=== PATIENT | male | born 1990 | race African-American/Black ===

== ENCOUNTER 2020-11-01 08:20 | Emergency (ER) | payer OTHER, SELFPAY ==
--- NOTE | ~2020-11-01 | XR_ITS ---
EXAMINATION: XR SHOULDER, RIGHT CLINICAL INFORMATION: Trauma, pain COMPARISON: None TECHNIQUE: Right shoulder is imaged in 3 views. FINDINGS: There is no fracture or dislocation. The glenohumeral joint appears normal. The acromioclavicular alignment is normal. There is spurring inferior aspect distal clavicle. No visible rotator cuff calcifications. Right lung apex shows no pneumothorax or pleural reaction. XR/XR shoulder RT min 2V IMPRESSION: No fracture or dislocation.
--- NOTE | ~2020-11-01 | XR_ITS ---
EXAMINATION: XR ELBOW, RIGHT CLINICAL INFORMATION: Fall, trauma, pain COMPARISON: None TECHNIQUE: AP, lateral, and oblique views of the right elbow. FINDINGS: There is no fracture, dislocation, or elbow capsular effusion. No joint narrowing or erosive change. Normal bony mineralization. XR/XR elbow RT min 3V IMPRESSION: Normal right elbow.
[2020-11-01 09:25] VITALS: PULSE 90; RESP 18; TEMP 36.7; O2SAT 98; BMI 29.9
--- NOTE | 2020-11-01 10:02 | ED.EXTPRO ---
HPI - Extremity Problem General Chief complaint: Extremity Injury, Upper Stated complaint: fell rt elbow and rt shoulder inj Time Seen by Provider: 11/01/20 09:23 Source: patient Mode of arrival: ambulatory Limitations: no limitations History of Present Illness HPI Narrative: Otherwise healthy 30-year-old male who denies significant past medical or surgical history presenting complaint of right shoulder and elbow pain status post fall yesterday. States he was walking out of his apartment and did not realize the steps were wet and slippery he slipped tried to stop his fall and reached out to the hand rail with his right arm and since then he has had right shoulder pain and elbow pain where he hit. States he felt okay somewhat sore this morning he went to work he was lifting something and made the pain more pronounced in the right shoulder. States at that time also had some mild low back pain but does not at this time. Denies any other injury. MD Complaint: extremity pain Onset (ago): day(s) Pain Consistency: constant Location: right Severity scale (1-10): 6 Quality: aching Radiation: proximal Relieving factors: immobilization Exacerbating factors: range of motion Associated symptoms: denies other symptoms Context: other (Fall) Related Data Previous Rx's Medication Instructions Recorded ibuprofen 800 mg PO Q8H PRN #30 tab 11/01/20 Allergies Allergy/AdvReac Type Severity Reaction Status Date / Time quetiapine [From SEROQUEL] AdvReac Intermediate RESTLESSNES Unverified 05/10/20 15:47 S Review of Systems Review of Systems: Constitutional: No Weight loss, No Fever, No Chills, No Night Sweats, No Fatigue, No Malaise ENT/Mouth: No Hearing loss, No Ear Pain, No Nasal Congestion, No Sinus Pain, No Hoarseness, No sore throat, No Rhinorrhea, No Swallowing Difficulty Eyes: No Eye Pain, No Swelling, No Redness, No Foreign Body, No Discharge, No Vision Changes Cardiovascular: No Chest Pain, No SOB, No Dyspnea on Exertion, No Orthopnea, No Edema, No Palpitations Respiratory: No Cough, No Sputum, No Wheezing, No Dyspnea Gastrointestinal: No Nausea, No Vomiting, No Diarrhea, No Constipation, No abdominal Pain, No Hematochezia, No Melena Genitourinary: No Dysuria, No Urinary Frequency, No Hematuria, No Urinary Incontinence, No Urgency, No Flank Pain, No Urinary Flow Changes, No Hesitancy Musculoskeletal: No joint pain, No Myalgias, No Joint Swelling, as noted per HPI Skin: No Skin Lesions, No rash Neuro: No Weakness, No Numbness, No Paresthesias, No Loss of Consciousness, No Dizziness, No Headache Psych: No Social Issues Heme/Lymph: No Bruising, No Bleeding,No Lymphadenopathy Endocrine: No Polyuria, No Polydipsia, No Temperature Intolerance Yes all other systems are reviewed and are negative [facility] Past Medical History Medical History No known health problems Social History Social History Alcohol intake: never Smoked in Last 30 Days: No Use of substances other than those prescribed or required for medical reasons: No Advance Directives: No Advance Directives Information Provided: No Physical Exam Vital Signs: Vital Signs: Last Vital Signs Temp 98.0 F 11/01/20 09:25 Pulse 90 11/01/20 09:25 Resp 18 11/01/20 09:25 Pulse Ox 98 11/01/20 09:25 Body Mass Index 29.9 Reviewed Const: General: cooperative and healthy appearing; No acute distress or intoxicated appearing Nutritional Appearance: average body habitus Orientation/consciousness: patient oriented x3 HENMT: Head: Yes normal to inspection Ears: hearing grossly normal bilaterally Eyes: General: appearance normal, both eyes and all related structures Visual Sahni: normal visual sahni by confrontation Neck: Neck: Yes normal visual inspection, No positive Brudzinski's sign and No tender Thyroid: Thyroid normal Chest: Chest palpation & inspection: normal inspection of the chest Resp: Effort & Inspection: normal respiratory effort Auscultation: clear to auscultation bilaterally Cardio: Jugular venous distension: no JVD Rhythm: regular rhythm Heart sounds: S1 normal heart sound present and S2 normal heart sound present GI: Inspection: Yes normal to inspection Palpation (GI): Soft to palpation Percussion: Yes normal to percussion Auscultation: normal bowel sounds : General: Yes no CVA tenderness Back/Spine/Pelvis: Back: no CVA tenderness Skin: General skin exam: no rashes or lesions noted Neuro: General: patient oriented x3 Extrem: General: Yes normal to inspection Right upper extremity: normal to inspection, shoulder/upper arm (No vascular intact distally, reflexes within normal limits.) Details: abnormal ROM (Pain diffusely in all directions but vida to move byself ) Details: pain with active ROM and elbow/forearm Details: tenderness (mild ttp, no ss of injury , no ecchymosis or laceration/abrasion.) Location: of the olecranon MDM - Extremity (Nontraumatic) MDM Narrative Medical decision making narrative: Right shoulder/elbow pain status post fall yesterday that occurred at home exam contusion versus strain versus ligament station injury. X-ray without acute findings. Will place in sling and referred to Ortho. Imaging Data Right shoulder/right elbow: Radiologist's impression: [address] [id number] ReportSigned Patient: Christian Aleman OMR#: [id number]: 1990Acct:[id number]/Sex: 30 / MADM Date: 11/01/20Loc: [place].EDAttending Dr: Ordering Physician: Mitch Harding NP Date of Service: 11/01/20 Procedure(s): XR elbow RT min 3V Accession Number(s): [id number] cc: Mitch Harding NP~ EXAMINATION: XR ELBOW, RIGHT CLINICAL INFORMATION: Fall, trauma, pain COMPARISON: None TECHNIQUE: AP, lateral, and oblique views of the right elbow. FINDINGS: There is no fracture, dislocation, or elbow capsular effusion. No joint narrowing or erosive change. Normal bony mineralization. XR/XR elbow RT min 3V IMPRESSION: Normal right elbow. Dictated By:LAZ GIPSON MDSigned By:<Electronically signed by LAZ GIPSON MD in OV>11/01/20 1004 DD/ 0923TD/TT: Sandblast Operator: BRIAN [address] [id number] ReportSigned Patient: Christian Aleman OMR#: [id number]: 1990Acct:[id number]/Sex: 30 / MADM Date: 11/01/20Loc: [place].EDAttending Dr: Ordering Physician: Mitch Harding IN FLIGHT REFUELING OPERATOR Date of Service: 11/01/20 Procedure(s): XR shoulder RT min 2V Accession Number(s): [id number] cc: Mitch Harding IN FLIGHT REFUELING OPERATOR~ EXAMINATION: XR SHOULDER, RIGHT CLINICAL INFORMATION: Trauma, pain COMPARISON: None TECHNIQUE: Right shoulder is imaged in 3 views. FINDINGS: There is no fracture or dislocation. The glenohumeral joint appears normal. The acromioclavicular alignment is normal. There is spurring inferior aspect distal clavicle. No visible rotator cuff calcifications. Right lung apex shows no pneumothorax or pleural reaction. XR/XR shoulder RT min 2V IMPRESSION: No fracture or dislocation. Dictated By:LAZ GIPSON MDSigned By:<Electronically signed by LAZ GIPSON MD in OV>11/01/20 1002 DD/ 0923TD/TT: Sandblast Operator: BRIAN Discharge Plan Discharge Clinical Impression: Fall Qualifiers: Encounter type: initial encounter Qualified Code(s): W19.XXXA - Unspecified fall, initial encounter Injury of shoulder, right Qualifiers: Encounter type: initial encounter Qualified Code(s): S49.91XA - Unspecified injury of right shoulder and upper arm, initial encounter Contusion of elbow, right Qualifiers: Encounter type: initial encounter Qualified Code(s): S50.01XA - Contusion of right elbow, initial encounter Patient Disposition: Home, Self-Care Instructions: Contusion in Adults (ED), Shoulder Sprain (ED), Shoulder Immobilizer (ED) Additional Instructions: Shoulder immobilizer for comfort Removed and able to do gentle exercises reviewed Warm versus cold compresses whichever feels comfortable Follow-up with orthopedics as discuss Return if any concerns or worsening symptoms Thank you Prescriptions: New ibuprofen 800 mg tablet 800 mg PO Q8H PRN (Reason: pain) Qty: 30 RF: 0 Referrals: David Sahu MD [Primary Care Provider] - 5 days Mary Cisse MD [Physician] - 1 week Stand Alone Forms: Work/School Release
== END 2020-11-01 10:43 | disposition home or self-care (01) ==
PROVIDERS: Emergency Provider Emergency Medicine Emergency Medical Services; PCP Internal Medicine
DX: S49.91XA Unspecified injury of right shoulder and upper arm, initial encounter (principal); S50.02XA Contusion of left elbow, initial encounter; W00.1XXA Fall from stairs and steps due to ice and snow, initial encounter; Y93.89 Activity, other specified; Y92.038 Other place in apartment as the place of occurrence of the external cause; Y99.9 Unspecified external cause status
CPT/HCPCS: 73030; 73080; 96372; 99284

== ENCOUNTER 2020-12-10 15:41 | Outpatient (REF) | payer OTHER, SELFPAY | END 2020-12-10 15:42 | disposition home or self-care (01) | LOC: HO.LAB 15:41 | PROVIDERS: Visit Provider Internal Medicine | DX: Z20.822 Contact with and (suspected) exposure to COVID-19 (principal) | CPT/HCPCS: C9803; U0003; U0005 ==

== ENCOUNTER 2021-04-03 10:09 | Outpatient (REF) | payer OTHER, SELFPAY | END 2021-04-03 10:10 | disposition home or self-care (01) | LOC: HO.LAB 10:09 | PROVIDERS: PCP Internal Medicine; Visit Provider Internal Medicine | DX: Z20.822 Contact with and (suspected) exposure to COVID-19 (principal) | CPT/HCPCS: C9803; U0003; U0005 ==

== ENCOUNTER 2021-10-29 15:07 | Outpatient (REF) | payer OTHER, SELFPAY ==
[2021-10-29 15:34] LABS: MANUAL DIFF FLAG NO
[2021-10-29 15:54] LABS: Basophils Percent Auto 0.4 % (0-2); Eosinophils Absolute Auto 0.1 X10*3/uL (0.0-0.4); Eosinophils Percent Auto 1.5 % (0-4); Hematocrit 42.6 % (42.0-52.0); Imm Gran Abs Auto 0.02 X10*3/uL (0.00-0.03); Imm Gran Pct Auto 0.2 % (0.0-0.4); Lymphocytes Absolute Auto 1.9 X10*3/uL (1.2-4.9); Lymphocytes Percent Auto 23.1 % (20-40); Mean Corpuscular HGB Conc 32.9 g/dl (31.0-36.0); Mean Corpuscular Hemoglobin 28.2 pg (27.0-33.0); Mean Corpuscular Volume 85.9 fL (80.0-98.0); Mean Platelet Volume 11.3 fL (9.4-12.4); Monocytes Absolute Auto 0.6 X10*3/uL (0.1-1.2); Monocytes Percent Auto 7.6 % (2-11); Neutrophils Absolute Auto 5.6 x10*3/uL (2.0-8.3); Neutrophils Percent Auto 67.2 % (45-73); Platelet Count 237 X10*3/uL (160-400); Red Blood Count 4.96 X10*6/uL (4.60-5.80); Red Cell Distribution Width 12.4 % (11.0-16.0); White Blood Count 8.3 X10*3/uL (4.8-10.8)
[2021-10-29 16:19] LABS: Appearance Urine CLEAR; Color Urine YELLOW; Glucose Urine UA NEG (NEG); Leukocyte Esterase Urine NEG (NEG); Nitrite Urine NEG (NEG); Specific Gravity - Urine >= 1.030 (1.005-1.025); Urine Blood NEG (NEG); Urine Ketones 5 MG/DL (NEG); Urine Protein NEG (NEG-TRACE)
[2021-10-29 16:24] LABS: Alanine Aminotransferase 23 U/L (0-40); Albumin Level 4.5 g/dL (3.5-5.0); Alkaline Phosphatase 43 U/L (39-117); Anion Gap 12 (12-20); Aspartate Amino Transferase 28 U/L (5-37); Bilirubin Total 0.6 mg/dL (0.0-1.0); Blood Urea Nitrogen 16 mg/dL (9-16); Carbon Dioxide 28 mmol/L (22-29); Chloride 106 mmol/L (96-108); Cholesterol 131 mg/dL; Estimated Glomerular Filt Rate > 60; Glucose Random 89 mg/dL (60-115); Potassium 4.5 mmol/L (3.3-5.1); Sodium 141 mmol/L (135-145); Total Protein 6.9 g/dL (6.5-8.0)
[2021-10-29 16:46] LABS: TSH reflex Free T4 1.11 uIU/mL (0.32-4.0); Vitamin D 25-OH Total 18.3 ng/mL (>30)
[2021-10-30 08:24] LABS: Syphilis Screen Nonreactive (Nonreactive)
[2021-10-30 08:25] LABS: HBsAGNum1 0.18 S/CO (0.00-0.99); HIV AB/AG Nonreactive (Nonreactive); HIV Num 1 0.06 S/CO (0.00-0.99); Hepatitis B Surface Antigen Negative (Negative)
[2021-10-30 09:25] LABS: CT PCR NOT DETECTED (Not Detect.); NG PCR NOT DETECTED (Not Detect.)
[2021-10-30 10:05] LABS: HBS Num1 45.38 mIU/mL (0-7.99); HBc Num1 0.04 S/CO (0.00-0.79); Hepatitis B Core Antibody Nonreactive (Nonreactive); ~HepC Num1 0.06 S/CO (0.00-0.79); ~Hepatitis B Surface Antibody REACTIVE (Nonreactive); ~Hepatitis C Antibody Nonreactive (Nonreactive)
[2021-11-05 22:42] LABS: HSV 1 IgM IFA Negative (Negative); HSV 2 IgM IFA Negative (Negative)
== END 2021-10-29 15:08 | disposition home or self-care (01) ==
LOC: HO.LAB 15:07
PROVIDERS: PCP Internal Medicine; Visit Provider Internal Medicine
DX: Z00.00 Encounter for general adult medical examination without abnormal findings (principal); Z11.4 Encounter for screening for human immunodeficiency virus [HIV]; E55.9 Vitamin D deficiency, unspecified; Z20.2 Contact with and (suspected) exposure to infections with a predominantly sexual mode of transmission
CPT/HCPCS: 80053; 81003; 82306; 82465; 84443; 85025; 86695; 86696; 86704; 86706; 86780; 86803; 87340; 87389; 87491; 87591

== ENCOUNTER 2023-07-04 10:02 | Emergency (ER) | payer OTHER, SELFPAY ==
--- NOTE | 2023-07-04 10:11 | ED_ITS ---
HPI - Male Genitourinary General Chief complaint: Urogenital-Male Stated complaint: STD testing Time Seen by Provider: 07/04/23 10:04 Source: patient Mode of arrival: ambulatory Limitations: no limitations History of Present Illness HPI Narrative: patient is a 32 old male who presents emergency department requesting testing for STI. He states that last night he had unprotected intercourse with 2 women while under the influence of alcohol he is concerned about transmission of STI. Currently he is asymptomatic. Related Data Previous Rx's Medication Instructions Recorded doxycycline monohydrate 100 mg 100 mg PO BID #13 caps 07/04/23 capsule Allergies Allergy/AdvReac Type Severity Reaction Status Date / Time quetiapine [From SEROQUEL] AdvReac Intermediate RESTLESSNES Unverified 11/26/22 15:17 S Review of Systems Review of Systems: Yes all other systems are reviewed and are negative [facility] Past Medical History Attestation statement: The following information was validated with the patient. Source: old records reviewed Medical History Obesity (BMI 30-39.9) Overweight (BMI 25.0-29.9) Asthma Peptic ulcer disease GERD (gastroesophageal reflux disease) Surgical History History of toe surgery (~2011) History of cholecystectomy Family History Family History Mother Diabetes Bipolar 1 disorder Other Mental health problem Social History Social History Housing: Apartment Alcohol intake: current Alcohol intake frequency: holidays/special occasions only Patient Tobacco Use Status: Never used Tobacco Second Hand Smoke Exposure: Yes Substance Use Type: Marijuana service: No Current occupational status: employed Cognitive needs: No Hearing needs: No Vision needs: No Physical Exam Vital Signs: Appearance: Alert.?Oriented to person, place and time. No acute distress.?Normal affect. Eyes: Pupils equal, round and reactive to light.? ENT: Pharynx normal.?? Neck: Normal inspection.? Neck supple.?? CVS: Heart sounds normal. Normal heart rate and rhythm.? Pulses normal.?? Respiratory: No respiratory distress.? Lung sounds clear to auscultation bilaterally?? Abdomen: Soft and non-tender. Normoactive bowel sounds. Skin: Skin warm and dry.? Normal skin color.? Extremities: No lower extremity edema.? Neuro: Moves all extremities spontaneously. Sensation intact bilaterally. Ambulates with normal steady gait. Medical Decision Making Medical Decision Making MDM Narrative: Patient is a 32-year-old male who presents emergency department with concern for STI after unprotected intercourse last night. I discussed with patient that testing obtained today would be too soon to determine if there was transition of any sexually transmitted in sections from last night's encounter. He is requesting prophylactic treatment to cover chlamydia and gonorrhea, I discussed with him this would include injection with ceftriaxone in addition to a 1 week course of doxycycline which he is agreeable to. We also discussed HIV prophylaxis, at this time he is not interested in HIV prophylaxis. He states that he plans to follow up with his primary care provider for repeat testing; I advised the HIV prophylaxis can be initiated for 72 hours after intercourse, and recommended HIV testing in 6 weeks as he is currently declining HIV prophylaxis. Patient was advised to refrain from sexual intercourse for the next week. Discussed worrisome signs and symptoms that would warrant re-evaluation in the emergency department. All questions answered. Stable for discharge. Differential Diagnosis Differential Diagnoses: The differential diagnosis associated with the presentation includes ( Noted above) External Record Review External record reviewed: Outpatient record Tests considered The following testing was considered but not selected: STI testing, too soon, deferred see narrative above Prescription Management I considered prescription management with: Antibiotic Discharge Plan Discharge Clinical Impression: Contact with and (suspected) exposure to infections with a predominantly sexual mode of transmission Patient Disposition: Home, Self-Care Instructions: Postexposure Prophylaxis (ED) Additional Instructions: You received treatment with ceftriaxone in the emergency department in the 1st dose of doxycycline, I have sent the remainder prescription for doxycycline to your pharmacy. Please complete this entire course. We discussed HIV prophy laxis with nPEP, indications abuse and possibility of transmission, you have declined nPEP, please follow-up with your primary care provider and consider having testing in 6 weeks. Refrain from sexual intercourse over the next week while on antibiotics. On doxycycline, do not take pills immediately before going to bed and swallow pills with plenty of water. Avoid direct sunlight, iron, antacids, and Pepto Bismol. Call your provider if you develop new ringing in your ears, new problems hearing, dizziness, difficulty swallowing, rash, abdominal discomfort, nausea, or diarrhea.? Prescriptions: New doxycycline monohydrate 100 mg capsule 100 mg PO BID Qty: 13 0RF Referrals: David Sahu MD [Primary Care Provider] -
[2023-07-04 10:14] VITALS: BP 147/96; PULSE 89; RESP 16; TEMP 36.9; O2SAT 96; BMI 29.9
[2023-07-04] MEDS: Doxycycline Monohydrate 100 MG CAPSULE PO (10:41)
[2023-07-04] MEDS: cefTRIAXone sodium 500 MG, Lidocaine HCl 1 % MPF 1 ML IM (10:41)
[2023-07-04 12:32] LABS: CT PCR NOT DETECTED (Not Detect.); NG PCR NOT DETECTED (Not Detect.)
== END 2023-07-04 10:57 | disposition home or self-care (01) ==
PROVIDERS: Nurse Practitioner Family; Emergency Provider Emergency Medicine Emergency Medical Services; PCP Internal Medicine
DX: Z20.2 Contact with and (suspected) exposure to infections with a predominantly sexual mode of transmission (principal)
CPT/HCPCS: 0353U; 96372; 99283; 99284; J0696

== ENCOUNTER 2024-07-25 09:25 | Outpatient (AMB) | payer OTHER, SELFPAY ==
[2024-07-25 09:37] VITALS: BP 110/82; PULSE 58; O2SAT 98; BMI 27.9
--- NOTE | 2024-07-25 09:37 | MHC.PC.OV ---
Vital Signs 07/25/24 09:37 Height 5 ft 7 in Weight 178 lb BMI 27.9 BP 110/82 Blood Pressure Location Lt brachial Position Sitting Pulse 58 Pulse Source Pulse Oximeter Pulse Oximetry (%) 98 Oxygen Delivery Method Room Air Intake Visit Reasons: ANNUAL Web Page Designer Required: No Accompanied by: Self / Same As Patient Allergies quetiapine [From SEROQUEL] Adverse Reaction (Intermediate, Verified 07/25/24 09:54) RESTLESSNESS Medication List - Last Reconciled 07/25/24 by David Sahu MD doxycycline monohydrate 100 mg PO BID Tobacco use date assessed: 07/25/24 Dental Screening Dental Screen Date: 07/25/24 Did you have a dental visit in the last 12 months?: Yes Did you have a dental problem in the last 6 months where you did not have access to dental care?: No Was dental information given to patient?: Patient has dentist HPI ANNUAL HPI Details Patient comes in today for his annual physical examination States that he feels okay He denies any headaches or dizziness Denies any chest pains, no SOB No nausea/vomiting, no abdominal pain No change in bowel habits noted He denies any acute urinary symptoms Would also like to have some STD testing done and get himself checked out - states that he's had no acute STD symptoms or symptoms but recalls having several casual sexual encounters this past summer and just wants to get himself checked out for his own peace of mind [facility] Medical History (Updated 07/25/24 @ 12:03 by David Sahu MD) Overweight (BMI 25.0-29.9) Asthma Peptic ulcer disease GERD (gastroesophageal reflux disease) Surgical History History of toe surgery (~2011) History of cholecystectomy Family History Mother Diabetes Bipolar 1 disorder Other Mental health problem Social History Housing: Apartment Alcohol intake: current Alcohol intake frequency: holidays/special occasions only Patient Tobacco Use Status: Never used Tobacco e-Cigarette/Vaping Use: Never Used Second Hand Smoke Exposure: Yes Substance Use Type: Marijuana service: No Current occupational status: employed Cognitive needs: No Hearing needs: No Vision needs: No Questionnaire PHQ-9 Over the last 2 weeks, how often have you been bothered by any of the following problems? 1. Little interest or pleasure in doing things: not at all 2. Feeling down, depressed, or hopeless: not at all 3. Trouble falling or staying asleep, or sleeping too much: several days 4. Feeling tired or having little energy: not at all 5. Poor appetite or overeating: not at all 6. Feeling bad about yourself - or that you are a failure or have let yourself or your family down: not at all 7. Trouble concentrating on things, such as reading the newspaper or watching television: not at all 8. Moving or speaking so slowly that other people could have noticed. Or the opposite - being so fidgety or restless that you have been moving around a lot more than usual: not at all 9. Thoughts that you would be better off or of hurting yourself in some way: not at all Total score: 1 Depression Screening Interpretation: Negative Depression Screening Done: Yes 82559 - PHQ-9 Billing: Yes Source: Developed by Drs. Albert Conn, Ellie Anne, Endy Iniguez and colleagues, with an educational nicholas from [employer]. Thrive Questionnaire Date Thrive assessed: 07/25/24 I am a: Patient What is your living situation today?: I have a steady place to live Within the past 12 months, did the food you bought not last and you didn't have the money to get more?: Never true Within the past 12 months, did you worry whether your food would run out before you got money to buy more?: Never true Do you have trouble paying for medicines?: No Do you have trouble getting transportation to medical appointments?: No Do you have trouble paying your heating and electricity bill?: No Do you have trouble taking care of your child, family member or friend?: No Do you have trouble with day-to-day activities such as bathing, preparing meals, shopping, managing finances, etc.?: No Are you currently unemployed and looking for a job?: No Are you interested in more education?: No Please select the resources that you would like help with: None Currently or been in a relationship where the following occur: I choose not to answer THRIVE Score: 0 AUDIT C Alcohol Use Questionnaire (AUDIT-C) 1. How often do you have a drink containing alcohol?: Monthly or less 2. How many drinks containing alcohol do you have on a typical day when you are drinking?: 3 or 4 3. How often do you have six or more drinks on one occasion?: Less than monthly Total Score: 3 Score Reviewed/Action Taken: Yes MOLLY-7 AMB Questionnaire MOLLY-7 Date MOLLY - 7 assessed: 11/26/22 Feeling nervous, anxious, or on edge: 1 = Several days Not being able to stop or control worryin = Not at all Worrying too much about different things: 1 = Several days Trouble relaxin = Several days Being so restless that it is hard to sit still: 0 = Not at all Becoming easily annoyed or irritable: 1 = Several days Feeling afraid as if something awful might happen: 0 = Not at all Total MOLLY-7 score (0-4 normal; 5-9 mild; 10-14 moderate; 15-21 severe): 4 Source: Developed by Drs. Albert Conn, Ellie Anne, Endy Iniguez and colleagues, with an educational nicholas from [employer]. Review of Systems Const Denies chills, Denies fatigue, Denies fever(s), Denies headache(s), Denies malaise and Denies weakness Eyes Denies blurry vision, Denies change in vision, Denies irritation and Denies itchy eyes ENT Denies dysphagia, Denies dizziness, Denies otalgia, Denies headache(s), Reports hearing loss (he has noticed some difficulty with his hearing recently), Denies nasal congestion, Denies neck pain, Denies odynophagia and Denies sore throat Card Denies chest pain, Denies rapid heart rate, Denies irregular heart rhythm, Denies palpitations and Denies dyspnea Resp Denies chest congestion, Denies cough, Denies dyspnea and Denies wheezing GI Denies abdominal pain, Denies bloating, Denies constipation, Denies dysphagia, Denies heartburn, Denies diarrhea, Denies nausea, Denies odynophagia and Denies vomiting Denies hematuria, Denies difficulty urinating, Denies dysuria, Denies urinary frequency and Denies urinary urgency Musc Denies back pain, Denies arthralgias, Denies joint swelling, Denies muscle weakness and Denies neck pain Skin/Breast Denies change in pigmentation, Denies lesions, Denies rash and Denies unusual bruising Neuro Denies dizziness, Denies headache(s), Denies paresthesias and Denies weakness Endo Denies fatigue and Denies palpitations Aller/Immun Denies itchy eyes and Denies wheezing Physical exam (Primary Care) Vital Signs: Last Vital Signs Pulse 58 07/25/24 09:37 BP 110/82 07/25/24 09:37 Pulse Ox 98 07/25/24 09:37 Oxygen Delivery Method Room Air 07/25/24 09:37 BMI result Body Mass Index 27.9 Tobacco/Smoking Status: Tobacco use Status Tobacco use date assessed 07/25/24 07/25/24 09:42 Patient Tobacco Use Status Never used Tobacco 07/25/24 09:42 e-Cigarette/Vaping Use Never Used 07/25/24 09:42 PHQ-9: PHQ-9 Score PHQ-9: Total score 1 07/25/24 10:00 Depression Screening Interpretation: Negative Thrive Assessment: Date of Thrive Assessment Date Thrive assessed 07/25/24 07/25/24 09:42 Currently or been in a relationship where the following occur: I choose not to answer Const General: no acute distress, alert and awake Orientation/consciousness: patient oriented x3 HENMT Head: Yes normocephalic and Yes atraumatic Ears: external ears normal, TM's normal bilaterally and EAC's normal General nose exam: No nasal discharge present Face and sinus: Yes normal facial exam and Yes sinuses nontender Teeth and gingiva: dentition normal Throat: Yes posterior oropharynx normal and Yes tonsils normal (no TP congestion) Eyes Eyelids: Yes eyelids normal Conjunctivae: conjunctivae normal Pupils: Equal, round and reactive pupils present EOM: EOMs intact bilaterally Neck Neck: Yes no lymphadenopathy and Yes supple Thyroid: Thyroid normal Resp Auscultation: clear to auscultation bilaterally, no rales and no wheezes Cardio Rate: regular rate Rhythm: regular rhythm Heart sounds: no murmurs GI Palpation (GI): Soft to palpation, nontender and No hepatosplenomegaly present Auscultation: normal bowel sounds General: Yes no CVA tenderness Back/Spine/Pelvis Back: no CVA tenderness Thoracic/Lumbar Spine: thoracic and lumbar spine normal to inspection Skin Lesions: no lesions Rashes: no rashes Neuro General: patient oriented x3, moves all extremities, no focal motor deficits and CN's II-XI intact bilaterally Cranial nerves: Yes Equal, round and reactive pupils present Cognition (Neuro): normal cognition Gait exam (Neuro): Normal gait present Extrem General: Yes no clubbing, cyanosis or edema Coding Level of Care Code Est Pt Prev Care 18-39y([id number]) Diagnoses Annual physical exam Z00.00 Gastroesophageal reflux disease without esophagitis K21.9 Esophagitis presence: without esophagitis Insomnia, unspecified type G47.00 Insomnia type: unspecified Possible exposure to STD Z20.2 Overweight (BMI 25.0-29.9) E66.3 Hearing loss, unspecified hearing loss type, unspecified laterality H91.90 Hearing loss type: unspecified Laterality: unspecified laterality Additional Codes PHQ-9 - 19282 - PHQ-9 Billing: Yes ([id number]) Assessment & Plan Assessment & Plan (1) Annual physical exam: Code(s): Z00.00 - Encounter for general adult medical examination without abnormal findings Category: Medical Plan: Check labs (2) GERD (gastroesophageal reflux disease): Code(s): K21.9 - Gastro-esophageal reflux disease without esophagitis Category: Medical Qualifiers: Esophagitis presence: without esophagitis Qualified Code(s): K21.9 - Gastro-esophageal reflux disease without esophagitis Plan: Dietary restrictions reinforced He used to take Omeprazole in the past but has not needed to take any Rx in a while now as his symptoms have been well-controlled (3) Insomnia: Code(s): G47.00 - Insomnia, unspecified Category: Medical Qualifiers: Insomnia type: unspecified Qualified Code(s): G47.00 - Insomnia, unspecified Plan: Sleep hygiene reinforced States that he has been sleeping better lately and does not need anything for his sleep at this time (4) Possible exposure to STD: Code(s): Z20.2 - Contact with and (suspected) exposure to infections with a predominantly sexual mode of transmission Category: Medical Plan: Per request, will send him as well for STD testing (5) Overweight (BMI 25.0-29.9): Code(s): E66.3 - Overweight Category: Medical Plan: Reinforced diet/exercise as tolerated/lose weight (6) Hearing loss: Code(s): H91.90 - Unspecified hearing loss, unspecified ear Category: Medical Qualifiers: Hearing loss type: unspecified Laterality: unspecified laterality Qualified Code(s): H91.90 - Unspecified hearing loss, unspecified ear Plan: Will refer him for hearing evaluation Plan To return in 1 year for his next annual physical examination Orders: Orders TSH reflex Free T4 Today E78.00 - Pure hypercholesterolemia, unspecified, Z00.00 - Encounter for general adult medical examination without abnormal findings UA CC w/rflx Micro + Cult Today R30.0 - Dysuria, Z00.00 - Encounter for general adult medical examination without abnormal findings HIV Ab/Ag Today Z20.2 - Contact with and (suspected) exposure to infections with a predominantly sexual mode of transmission Syphilis Screen Today Z20.2 - Contact with and (suspected) exposure to infections with a predominantly sexual mode of transmission CT NG by PCR Today Z20.2 - Contact with and (suspected) exposure to infections with a predominantly sexual mode of transmission Complete Blood Count Auto Diff Today D64.9 - Anemia, unspecified, Z00.00 - Encounter for general adult medical examination without abnormal findings Comprehensive [place]. Panel Fast Today E78.00 - Pure hypercholesterolemia, unspecified, Z00.00 - Encounter for general adult medical examination without abnormal findings Lipid Panel Today E78.00 - Pure hypercholesterolemia, unspecified, Z00.00 - Encounter for general adult medical examination without abnormal findings Vitamin D 25-OH Total Today E55.9 - Vitamin D deficiency, unspecified, Z00.00 - Encounter for general adult medical examination without abnormal findings Hepatitis B,C Profile Today Z20.2 - Contact with and (suspected) exposure to infections with a predominantly sexual mode of transmission Referrals Speech and Hearing Referral H91.90 - Unspecified hearing loss, unspecified ear
== END 2024-07-25 10:15 | disposition home or self-care (01) ==
PROVIDERS: PCP Internal Medicine; Visit Provider Internal Medicine
DX: Z00.00 Encounter for general adult medical examination without abnormal findings (principal); K21.9 Gastro-esophageal reflux disease without esophagitis; G47.00 Insomnia, unspecified; Z20.2 Contact with and (suspected) exposure to infections with a predominantly sexual mode of transmission; E66.3 Overweight; H91.90 Unspecified hearing loss, unspecified ear

== ENCOUNTER 2024-07-25 09:25 | Outpatient (REF) | payer OTHER, SELFPAY ==
[2024-07-25 10:36] LABS: MANUAL DIFF FLAG NO
[2024-07-25 10:50] LABS: Basophils Percent Auto 0.4 % (0-2); Eosinophils Absolute Auto 0.2 X10*3/uL (0.0-0.4); Eosinophils Percent Auto 2.5 % (0-4); Hematocrit 42.8 % (42.0-52.0); Hemoglobin 14.3 g/dl (14.0-18.0); Imm Gran Abs Auto 0.02 X10*3/uL (0.00-0.03); Imm Gran Pct Auto 0.3 % (0.0-0.4); Lymphocytes Absolute Auto 2.4 X10*3/uL (1.2-4.9); Lymphocytes Percent Auto 33.3 % (20-40); Mean Corpuscular HGB Conc 33.4 g/dl (31.0-36.0); Mean Corpuscular Hemoglobin 28.5 pg (27.0-33.0); Mean Corpuscular Volume 85.4 fL (80.0-98.0); Mean Platelet Volume 10.9 fL (9.4-12.4); Monocytes Absolute Auto 0.6 X10*3/uL (0.1-1.2); Monocytes Percent Auto 7.6 % (2-11); Neutrophils Absolute Auto 4.1 x10*3/uL (2.0-8.3); Neutrophils Percent Auto 55.9 % (45-73); Platelet Count 210 X10*3/uL (160-400); Red Blood Count 5.01 X10*6/uL (4.60-5.80); Red Cell Distribution Width 12.3 % (11.0-16.0); White Blood Count 7.3 X10*3/uL (4.8-10.8)
[2024-07-25 11:19] LABS: Appearance Urine Clear; Color Urine Yellow; Glucose Urine UA Negative (Negative); Leukocyte Esterase Urine Negative (Negative); Nitrite Urine Negative (Negative); Specific Gravity - Urine 1.015 (1.005-1.025); Urine Blood Negative (Negative); Urine Ketones Negative (Negative); Urine Protein Negative (Neg-Trace)
[2024-07-25 11:35] LABS: Alanine Aminotransferase 38 U/L (0-40); Albumin Level 4.4 g/dL (3.5-5.0); Alkaline Phosphatase 46 U/L (39-117); Anion Gap 8 (12-20); Aspartate Amino Transferase 41 U/L (5-37); Bilirubin Total 0.4 mg/dL (0.0-1.0); Blood Urea Nitrogen 11 mg/dL (9-16); Calcium 9.1 mg/dL (8.4-10.2); Carbon Dioxide 30 mmol/L (22-29); Chloride 106 mmol/L (96-108); Cholesterol 136 mg/dL (<200); Estimated Glomerular Filt Rate > 60; Glucose Fasting 101 mg/dL (60-99); HDL Cholesterol 46 mg/dL (>40); LDL Cholesterol Calculated 76 mg/dL (<100); Potassium 4.1 mmol/L (3.3-5.1); Sodium 140 mmol/L (135-145); Total Protein 6.7 g/dL (6.5-8.0); Triglycerides 74 mg/dL (<150)
[2024-07-25 11:44] LABS: Syphilis Screen Nonreactive (Nonreactive)
[2024-07-25 11:45] LABS: HBS Num1 32.33 mIU/mL (0-7.99); HBc Num1 0.04 S/CO (0.00-0.79); HBsAGNum1 0.56 S/CO (0.00-0.99); HIV AB/AG Nonreactive (Nonreactive); HIV Num 1 0.06 S/CO (0.00-0.99); Hepatitis B Core Antibody Nonreactive (Nonreactive); Hepatitis B Surface Antigen Negative (Negative); ~HepC Num1 0.06 S/CO (0.00-0.79); ~Hepatitis B Surface Antibody REACTIVE (Nonreactive); ~Hepatitis C Antibody Nonreactive (Nonreactive)
[2024-07-25 11:52] LABS: TSH reflex Free T4 2.06 uIU/mL (0.32-4.0); Vitamin D 25-OH Total 30.2 ng/mL (>30)
== END 2024-07-25 09:26 | disposition home or self-care (01) ==
LOC: HO.LAB 09:25
PROVIDERS: PCP Internal Medicine; Visit Provider Internal Medicine
DX: Z00.00 Encounter for general adult medical examination without abnormal findings (principal); K21.9 Gastro-esophageal reflux disease without esophagitis; G47.00 Insomnia, unspecified; E66.3 Overweight; H91.90 Unspecified hearing loss, unspecified ear; Z20.2 Contact with and (suspected) exposure to infections with a predominantly sexual mode of transmission; E78.00 Pure hypercholesterolemia, unspecified; R30.0 Dysuria; D64.9 Anemia, unspecified; E55.9 Vitamin D deficiency, unspecified
CPT/HCPCS: 36415; 80053; 80061; 81003; 82306; 84443; 85025; 86704; 86706; 86780; 86803; 87340; 87389; 96127

== ENCOUNTER 2024-10-18 06:33 | Emergency (ER) | payer OTHER, SELFPAY ==
--- NOTE | ~2024-10-18 | XR_ITS ---
CLINICAL HISTORY: Cough 1 view chest x-ray Comparison: CR/MD/SR - CHEST 2 VIEWS - 09/07/19 07:37 EST Findings: Lungs are well inflated. Mediastinal contours, cardiac silhouette, and pulmonary vasculature are within normal limits. Lungs are clear. No pleural effusion. IMPRESSION: 1. No acute findings. This document has been electronically signed by: Juancarlos Glover MD on 10/18/2024 07:38:27
[2024-10-18 06:35] VITALS: BP 132/80; PULSE 79; RESP 18; TEMP 36.1; O2SAT 99; BMI 27.6
--- NOTE | 2024-10-18 06:39 | ECG_ITS ---
Test Reason : chest pain with cough Blood Pressure : */* mmHG Vent. Rate : 75 BPM Atrial Rate : 75 BPM P-R Int : 138 ms QRS Dur : 78 ms QT Int : 352 ms P-R-T Axes : 46 39 37 degrees QTcB Int : 393 ms Normal sinus rhythm Normal ECG When compared with ECG of 07-Sep-2019 08:06, No significant change was found Referred By: Generic ED Physician Electronically Signed By: BREANNA REAVES
--- OUTSIDE RECORDS SUMMARY | 2024-10-18 07:00 | XMS_ITS | Clinical Summary ---
Author Organization [employer] Address [address] [place] [address] Care Team Providers Care Automated Access Systems Technician Name Role Phone Unavailable Primary Care Provider Unavailabl e Allergies No known active allergies Medications acetaminophen (Tylenol) 500 MG tablet Take 1 tablet (500 mg) by mouth every 6 (six) hours if needed for mild pain for up to 20 doses. 20 tablet 03/03/2024 Active ibuprofen 600 MG tablet Take 1 tablet (600 mg) by mouth every 6 (six) hours if needed for mild pain for up to 20 doses. 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 Social History Tobacco Use Types Packs/Day Years Used Date Smoking Tobacco: Former Cigarettes Smokeless Tobacco: Former Tobacco Cessation:Counseling Given: Not Answered Alcohol Use Standard Drinks/Week Comments Defer 0 (1 standard drink = 0.6 oz pur e alcohol) Sex and Gender Information Value Date Recorded Sex Assigned at Male 06/23/2022 10:25 AM EDT Legal Sex Male 10:25 AM EDT Gender Identity Male 03/03/2024 8:58 AM EDT Sexual Orientation Straight 03/03/2024 8: 58 AM EDT Last Filed Vital Signs Vital Sign Reading Time Taken Comments Blood Pressure 120/80 03/03/2024 1:36 PM EDT Pulse - - Temperature - - Respiratory Rate - - Oxygen Saturation - - Inhaled Oxygen Concentration - - Weight - - Height - - Body Mass Index - - Plan of Treatment Health Maintenance Due Date Last Done Comments Depression Screening 1988 HIV Screening 1988 Lipid Panel 1988 SDOH Screening 1988 Alcohol/Substance Use Screening 2000 Family Planning (PISQ) 2003 Hepatitis C Screening 2006 DTaP/Tdap/Td Vaccines (1 - Tdap) 2007 Hepatitis B Vaccines (1 of 3 - 19+ 3-dose series) 2007 Dental Oral Exam 05/14/2015 11/10/2014, 05/11/2013 Dental Prophylaxis 06/01/2015 11/29/2014, 07/29/2013 Dental X-Ray: Bitewings 11/12/2015 11/11/19 15, 05/11/2013 Dental X-Ray: Full Mouth 01/11/2018 015, 05/11/2013 COVID-19 Vaccine (2 - 2023-2 5 season) 2024 10/28/2021 Influenza Vaccine (#1) 2024 Tobacco Screening 03/03/2025 03/03/2024 Zoster Vaccines (1 of 2) 2038 RSV Patients and Patients Aged 60 years or older (1 - 1-dose 75+ series) 2063 HIB Vaccines Aged Out No longer eligi ble based on patient's age to complete this topic HPV Vaccines Aged Out No longer eligi ble based on patient's age to complete this topic Hepatitis A Vaccines Aged Out No long er eligible based on patient's age to complete this topic IPV Vaccines Aged Out No longer eligi ble based on patient's age to complete this topic Meningococcal Vaccine Aged Out No aguila sarah eligible based on patient's age to complete this topic Pneumococcal Vaccine: Pediatrics (0 to 5 Years) and At-Risk Patients (6 to 49) Years) Aged Out No longer eligible b ased on patient's age to complete this topic RSV under 20 months Aged Out No longe r eligible based on patient's age to complete this topic Rotavirus Vaccines Aged Out No longer eligible based on patient's age to complete this topic Procedures Procedure Name Priority Date/Time Associated Diagnosis Comments PANORAMIC RADIOGRAPHIC IMAGE Routine 01/10/2015 12:00 AM EDT PROPHYLAXIS - ADULT Routine 11/29/2014 1 2:00 AM EDT BITEWINGS - 4 RADIOGRAPHIC IMAGES Routine 11/10/2014 12:00 AM EDT PERIODIC ORAL EVALUATION - ESTABLISHED PATIENT Routine 11/10/2014 12:00 AM EDT from Last 3 Months or Most Recently Relevant to Health Maintenance Insurance DENTAL - [employer] DENT[employer] PPO
[2024-10-18 07:18] LABS: IDNOW Serial# 55D5AD1C
[2024-10-18 07:19] LABS: Influenza A Positive (Negative); Influenza B2 Negative (Negative)
[2024-10-18 07:22] LABS: COVID-19 Test Negative (Negative); IDNOW Serial# 58CA691E
--- NOTE | 2024-10-18 07:30 | ED.GENADULT ---
HPI - General Adult General Chief complaint: General Medical Stated complaint: Rash, diff breathing Time Seen by Provider: 10/18/24 07:23 Source: patient Mode of arrival: ambulatory Limitations: no limitations History of Present Illness HPI narrative: This is a 34 years old the patient presented to the emergency department with complaining of generalized rash congestion rash she has been ongoing for about 4 days., denies any fever or chills he is also complaining of chest congestion. Onset (ago): day(s) (4) Radiation: non-radiation Severity: moderate Quality: burning Pain Consistency: constant Relieving factors: none Exacerbating factors: none Associated symptoms: denies other symptoms Related Data Previous Rx's ?Medication ?Instructions ?Recorded doxycycline monohydrate 100 mg 100 mg PO BID #13 caps 07/04/23 capsule loratadine 10 mg tablet (Claritin) 10 mg PO DAILY #7 tabs 10/18/24 prednisone 20 mg tablet 60 mg (3 x 20 mg) PO DAILY #12 tabs 10/18/24 Allergies Allergy/AdvReac Type Severity Reaction Status Date / Time quetiapine [From SEROQUEL] AdvReac Intermediate RESTLESSNES Verified 10/18/24 06:37 S Review of Systems Constitutional: Constitutional: Reports no additional constitutional complaints ENT: Reports system reviewed and no additional complaints, except as documented Cardiovascular: Cardiovascular: Reports no additional cardiovascular complaints Integumentary/Breasts: Skin/Breast: Reports as per HPI [facility] Past Medical History [facility] Narrative: Denies any major medical problems Medical History Overweight (BMI 25.0-29.9) Asthma Peptic ulcer disease GERD (gastroesophageal reflux disease) Surgical History History of toe surgery (~2011) History of cholecystectomy Family History Family History Mother Diabetes Bipolar 1 disorder Other Mental health problem Social History Social History Housing: Apartment Alcohol intake: current Alcohol intake frequency: holidays/special occasions only Patient Tobacco Use Status: Never used Tobacco e-Cigarette/Vaping Use: Never Used Second Hand Smoke Exposure: Yes Substance Use Type: Marijuana Advance Directives: No Advance Directives Information Provided: Yes Do you have a plan to hurt others: No Plan service: No Current occupational status: employed Cognitive needs: No Hearing needs: No Vision needs: No Physical Exam ED Vital Signs: Vital Signs - 24 hr 10/18/24 06:35 10/18/24 08:27 Temperature 97.0 F 99.3 F Pulse Rate 79 72 Respiratory Rate 18 14 Blood Pressure 132/80 128/81 Pulse Oximetry 99 97 Oxygen Delivery Method Room Air Room Air BMI result Body Mass Index 27.6 Not acute distress looks well Const General: cooperative, comfortable, no acute distress and alert HENMT Other: Examination of the head eyes ears nose and throat within normal limits Ears: hearing grossly normal bilaterally General nose exam: Normal external nose present Mouth: Normal oral and palatal mucosa present Neck Neck: Yes normal visual inspection and Yes full ROM Chest Chest palpation & inspection: normal inspection of the chest Breast/axilla palpation: normal palpation of the breasts Resp Effort & Inspection: normal respiratory effort and able to speak in complete sentences Auscultation: clear to auscultation bilaterally Cardio Jugular venous distension: no JVD Rate: regular rate GI Inspection: Yes normal to inspection Palpation (GI): Soft to palpation, not firm, nontender and no guarding Auscultation: normal bowel sounds Skin Other: He has a diffuse macular rash no hives noted no bullae no pustula Course Reevaluation(s) Reevaluation #1: PATIENT WAS RE-EXAMINED BY ME AT THIS TIME DOING MUCH BETTER HE IS POSITIVE FOR INFLUENZA, CHEST X-RAY SHOWS NO ACUTE DISEASE OKAY TO DISCHARGE Time: 08:39 Medications Administered Discontinued Medications Generic Name Dose Route Start Last Admin Trade Name Hipolito PRN Reason Stop Dose Admin Acetaminophen 975 mg 10/18/24 07:29 10/18/24 08:05 Acetaminophen 325 Mg Tablet PO 10/18/24 07:30 975 mg ONCE ONE Administration Diphenhydramine HCl 50 mg 10/18/24 07:28 10/18/24 08:05 Diphenhydramine Hcl 25 Mg Capsule PO 10/18/24 07:29 50 mg ONCE ONE Administration Prednisone 60 mg 10/18/24 07:28 10/18/24 08:06 Prednisone 20 Mg Tablet PO 10/18/24 07:29 60 mg ONCE ONE Administration Medical Decision Making Medical Decision Making MDM Narrative: Patient presented with a rash /congestion we will check viral panel Differential Diagnosis Differential Diagnoses: The differential diagnosis associated with the presentation includes Allergic reaction/viral syndrome Admission/Observation Consideration of admission/observation: Escalation of care including admission/observation considered Lab Data [facility] Lab Attestation statement: I reviewed the patient's lab results. Labs: Lab Results 10/18/24 Range/Units 06:42 COVID-19 (ANITHA) Negative (Negative) COVID-19 Clin Com See Note Influenza Type A (ANDRE) Positive A (Negative) Influenza Type B (ANDRE) Negative (Negative) Influenza A & B Note See Note Independent Interpretation I performed an independent interpretation of an: EKG and Plain X-Ray Interpretation: NO ACUTE DISEASE Radiology Impression Discussion of test interpretation with radiology: I have reviewed the radiologist's reading. Radiologist Impression: NEGATIVE External Record Review External record reviewed: Inpatient record Discharge Plan Discharge Clinical Impression: Influenza, Rash Patient Disposition: Home, Self-Care Instructions: Influenza (DC), Acute Rash (ED) Additional Instructions: FOLLOW-UP WITH YOUR PRIMARY CARE PHYSICIAN, WE SENT A PRESCRIPTION FOR PREDNISONE AND CLARITIN FOR THE RASH Prescriptions: New prednisone 20 mg tablet 60 mg PO DAILY Qty: 12 0RF loratadine [Claritin] 10 mg tablet 10 mg PO DAILY Qty: 7 0RF No Action doxycycline monohydrate 100 mg capsule 100 mg PO BID Qty: 13 0RF Referrals: David Sahu MD [Primary Care Provider] - 2 days Stand Alone Forms: Work/School Release Print Language: Slovenian
[2024-10-18] MEDS: diphenhydrAMINE HCL 25 MG CAPSULE 50 MG PO (08:05)
[2024-10-18] MEDS: Acetaminophen 325 MG TABLET 975 MG PO (08:05)
[2024-10-18] MEDS: predniSONE 20 MG TABLET 60 MG PO (08:06)
[2024-10-18 08:27] VITALS: BP 128/81; PULSE 72; RESP 14; TEMP 37.4; O2SAT 97
[2024-10-18 08:56] VITALS: BP 128/81; PULSE 72; RESP 14; TEMP 37.4; O2SAT 97
== END 2024-10-18 08:57 | disposition home or self-care (01) ==
PROVIDERS: Emergency Provider Emergency Medicine; PCP Internal Medicine
DX: J10.1 Influenza due to other identified influenza virus with other respiratory manifestations (principal); R07.89 Other chest pain; R05.9 Cough, unspecified; R06.02 Shortness of breath; R21 Rash and other nonspecific skin eruption; Z11.52 Encounter for screening for COVID-19; Z79.899 Other long term (current) drug therapy
CPT/HCPCS: 71045; 87502; 87635; 93005; 99283; 99284

== ENCOUNTER → 2024-10-18 06:39 | Outpatient (BNV) | payer OTHER, SELFPAY | PROVIDERS: Emergency Provider Emergency Medicine; PCP Internal Medicine; Visit Provider Internal Medicine | DX: R07.9 Chest pain, unspecified (principal); R05.9 Cough, unspecified | CPT/HCPCS: 93010 ==

== ENCOUNTER → 2024-10-18 07:10 | Outpatient (BNV) | payer OTHER, SELFPAY | PROVIDERS: Emergency Provider Emergency Medicine; PCP Internal Medicine; Visit Provider Radiology Diagnostic Radiology | DX: R05.9 Cough, unspecified (principal) | CPT/HCPCS: 71045 ==

== ENCOUNTER 2024-12-24 09:41 | Outpatient (REF) | payer OTHER, SELFPAY ==
[2024-12-26 04:30] LABS: Syphilis Screen Nonreactive (Nonreactive)
[2024-12-26 04:58] LABS: HBc Num1 0.04 S/CO (0.00-0.79); HBsAGNum1 0.29 S/CO (0.00-0.99); HIV AB/AG Nonreactive (Nonreactive); HIV Num 1 0.07 S/CO (0.00-0.99); Hepatitis B Core Antibody Nonreactive (Nonreactive); Hepatitis B Surface Antigen Negative (Negative); ~HepC Num1 0.07 S/CO (0.00-0.79); ~Hepatitis B Surface Antibody REACTIVE (Nonreactive); ~Hepatitis C Antibody Nonreactive (Nonreactive)
== END 2024-12-24 09:42 | disposition home or self-care (01) ==
LOC: HO.LAB 09:41
PROVIDERS: PCP Internal Medicine; Visit Provider Internal Medicine
DX: Z20.2 Contact with and (suspected) exposure to infections with a predominantly sexual mode of transmission (principal)
CPT/HCPCS: 36415; 86704; 86706; 86780; 86803; 87340; 87389